=== PATIENT | female | born 1950 | race Caucasian/White ===

== ENCOUNTER 2017-01-04 16:08 | Inpatient (IN) ==
[2017-01-04] MEDS ORDERED: SODIUM CHLORIDE 0.9% 500 ML IV STA (16:43)
[2017-01-04] MEDS ORDERED: ONDANSETRON 4 MG/2 ML VIAL IV STA (16:43)
[2017-01-04 17:08] LABS: Basophils % 0.1 % (0.0-0.8); Eosinophils % 0.1 % (0.00-10.9); Hematocrit 46.2 VOL% (35.7-47.0); Hemoglobin 15.5 GM/DL (12.0-16.0); Immature Granulocytes % 0.3 %; Immature Granulocytes Absolute 0.05 #; Mean Corpuscular HGB Conc 33.5 GM/DL (32-36); Mean Corpuscular Hemoglobin 31 PG (27-34); Mean Corpuscular Volume 91.3 FL (87-102); Mean Platelet Volume 10.9 FL (9.6-12.0); Monocytes # 1.3 10*3/uL (0.11-0.8); Monocytes % 9.4 % (1.7-12.7); Neutrophils # 10.9 10*3/uL (1.4-7.4); Neutrophils % 76.1 % (38.7-73.9); Platelet Count 285 T/CUMM (130-400); Red Blood Count 5.06 MC/CUMM (3.8-5.5); White Blood Count 14.3 T/CUMM (4-12)
--- NOTE | 2017-01-04 17:11 | XRay Report ---
Portable chest Date: 01/04/2017 Clinical history: Generalized abdominal pain Comparison: 06/03/2012 Technique: Portable AP sitting chest Findings: The heart is normal in size. The lungs are clear with unremarkable mediastinum. Degenerative changes are noted. Impression: No acute cardiopulmonary pathology identified. PROCEDURE INTERPRETED AT [facility] DEPARTMENT OF RADIOLOGY Final Report Signed by: Dr. Laila Meyers
[2017-01-04] MEDS ORDERED: ONDANSETRON 4 MG/2 ML VIAL ONE (17:16)
[2017-01-04 17:21] LABS: Albumin 4.6 G/DL (3.4-5.0); Bilirubin,Total 1.9 MG/DL (0.2-1.0); Calcium 9.9 MG/DL (8.5-10.1); Osmolality,Calculated 274.1 MOS/KG (273-304); Potassium 3.7 MMOL/L (3.5-5.1); Total Protein 8.7 G/DL (6.4-8.3)
--- NOTE | 2017-01-04 17:21 | CT Report ---
CT abdomen pelvis wo con Indication: Abdominal and pelvic pain. CT ABDOMEN AND PELVIS WITHOUT CONTRAST DLP: 215 mGy*cm. One or more of the following dose reduction techniques was used: Automated exposure control, adjustment of the mA and/or kV according the patient size, or use of iterative reconstruction techniques. Comparison: 06/05/2011. Technique: Axial noncontrast CT images of the abdomen and pelvis were obtained. Abdomen: Normal heart size. Bibasilar scarring or atelectasis. Unenhanced liver, spleen, pancreas, adrenal glands and right kidney appear unremarkable. Single nonobstructing 4 mm left kidney stone is present. Gallbladder is absent. Stool and gas is present throughout colon. Small bowel dilatation is present with multiple air-fluid levels. This begins at the duodenum and involves most of the jejunum. There is a gradual transition in the right pelvis not thought to represent a actual mechanical obstruction. Pelvis: Appendix not identified. No right lower quadrant inflammation. Urinary bladder is contracted. Uterus is absent. Rectosigmoid colon is unremarkable except for some scattered diverticula. No free fluid, free air or lymphadenopathy. No mesenteric inflammation. No destructive bone lesions. Impression: 1. Gas-filled dilatation of small bowel with some scattered air-fluid levels noted. All of the findings support early small bowel obstruction, with a transition in the right pelvis, no cause for obstruction is seen. Additionally, stool and gas is present in the colon. 2. Nonobstructing left kidney stone. 3. Status post cholecystectomy and hysterectomy. Appendix not identified but no right lower quadrant inflammation. PROCEDURE INTERPRETED AT [facility] DEPARTMENT OF RADIOLOGY Final Report Signed by: Leonardo Mcmanus M.D.
[2017-01-04] MEDS ORDERED: ACETAMINOPHEN 325 MG TABLET PO PRN (17:29)
[2017-01-04] MEDS ORDERED: ONDANSETRON 4 MG/2 ML VIAL IV PRN (17:29)
--- NOTE | 2017-01-04 17:37 | Emergency Department Note ---
Beatrice Trent Brittany, am scribing for, and in the presence of, Travon Man MD 16:44. Donovan Trent Phillip K, MD, personally performed the services described in this documentation, ascribed by Caridad Barron in my presence, and it is both accurate and complete 737 . Arrival - Arrival Chief Complaint: Abdominal / Flank Pain Stated Complaint: Small bowel obstuction ED Nursing Triage Note: Pt c/o abd pain, weakness, nausea, and vomiting since . Pt sent from clinic for ?SBO. Mode of Arrival: Ambulatory Limitations: No Limitations Source: Patient - History of Present Illness HPI Narrative: THis is a 66 y/o white female,who presents to the ED for further evaluation of a SBO. She states states for the past 2 days she has had abdominal pain and nausea. She states she had a normal BM yesterday. She denies a fever or diarrhea. She states she has been vomiting. She states movements make the pain worse. Pt has no other complaints/painin the ED at this time. Pt has a PMHx of HTN and GERD. Pt has had a hysterectomy, appendectomy, and cholecystectomy. Pt denies a family medical Hx. Pt denies a social Hx. Consistency: constant Severity: moderate Allergies/Adverse Reactions: Allergies Allergy/AdvReac Type Severity Reaction Status Date / Time acetaminophen [From [place]] AdvReac Nausea Verified 01/04/17 16:17 hydrocodone [From [place]] AdvReac Nausea Verified 01/04/17 16:17 Home Medications: Home Medications Medication Instructions Recorded Confirmed Type Losartan [Cozaar] 50 mg PO QAM 01/04/17 01/04/17 History Omeprazole Magnesium [Prilosec Otc] 20 mg PO DAILY PRN 01/04/17 01/04/17 History Review of System - Review of System 12 point system: reviewed and no additional remarkable complaints except as stated - Review of System Constitutional: Absent: fever Gastrointestinal: Present: abdominal pain, nausea, vomiting. Absent: diarrhea Medical,Surgical,& Family Hx - Medical History Cardio: History of: [place] Gastrointestinal: History of: GERD - Surgical History Abdominal Surgeries: Surgical HX of: Appendectomy, Cholecystectomy Reproductive Surgeries: Surgical HX of;: Hysterectomy - Social History Smoking Status: Never smoker Exam Vital Signs: Vital Signs Temperature 97.6 F 01/04/17 16:37 Pulse Rate 86 01/04/17 17:35 Respiratory Rate 16 01/04/17 17:35 Blood Pressure 125/50 01/04/17 17:35 O2 Sat by Pulse Oximetry 100 01/04/17 17:35 - General General appearance: alert, in no apparent distress - Head Head exam: Present: atraumatic, normocephalic, normal inspection - Eye Eye exam: Present: normal appearance, PERRL, EOMI. Absent: nystagmus, miosis, mydriasis - ENT ENT exam: Present: normal exam, normal oropharynx, mucous membranes moist, TM's normal bilaterally, normal external ear exam - Neck Neck exam: Present: normal inspection, full ROM, trachea midline. Absent: tenderness, meningismus, lymphadenopathy, thyromegaly - Chest Chest inspection: Present: normal inspection, symmetric chest wall rise. Absent : tenderness, rash, abscess - Respiratory Respiratory exam: Present: normal lung sounds bilaterally. Absent: rales, respiratory distress, rhonchi, stridor, wheezes - Cardiovascular Cardiovascular exam: Present: regular rate, normal rhythm, normal heart sounds. Absent: murmur, rubs, gallop, clicks, JVD - Abdominal Exam Abdominal exam: Present: soft, tenderness (Tenderness to the lower quadrants bilaterally, worse in the left lower quadrant), hyperactive bowel sounds. Absent: distention, guarding, rebound, rigidity - Rectal Exam Rectal exam: Present: deferred - Extremities Exam Extremities exam: Present: normal inspection, full ROM, normal capillary refill. Absent: tenderness, pedal edema, joint swelling, calf tenderness - Back Exam Back exam: Present: normal inspection, full ROM. Absent: tenderness, muscle spasm, rashes - Neurological Exam Neurological exam: Present: alert, oriented X3, CN II-XII intact. Absent: motor sensory deficit - Psychiatric Psychiatric exam: Present: normal affect, normal mood. Absent: depressed, agitated, anxious, flat affect, manic - Skin Skin exam: Present: warm, dry, intact, normal color. Absent: rash, cyanosis, diaphoresis, erythema, pallor, mottled Course Course Narrative: Patient discussed with Dr. Livingston Results - Labs CBC & BMP: 01/04/17 17:05 01/04/17 17:05 Lab Results: I have reviewed the patients labs (Urinalysis is pending) - Diagnostic Findings Procedure: Chest x-ray: report reviewed by me (Nothing acute. ), CT Abdomen and Pelvis: report reviewed by me (Gas-filled dilation of small bowel with some scattered air-fluid levels noted. All of the findingssupport early small bowel obstruction, with a transition in the right right pelvis, no cause for obstruction is seen. Additionally, stool and gas is present in paul colon. 2. Non obstructing left kideny stone. 3. Status post cholecystectomy and hysterectomy. Appendix not identified but no right lower quadrant inflammation. ) Disposition Clinical Impression: Early small bowel obstruction Case discussed with: patient, patient's family Disposition: Still a Patient Condition: Guarded Additional Instructions: Admit to Dr. Livingston
[2017-01-04 17:40] LABS: Apearance,Urine Slightly Hazy (Clear); Bacteria,Urine Occasional /HPF (Few); Bilirubin,Urine Negative (Negative); Blood, Urine Small mg/dL (Negative); Glucose,Urine (UA) Negative (Negative); Hyaline Casts,Urine 40 /LPF (0-3); Ketones,Urine Negative (Negative); Mucus,Urine Few /LPF (Occasional); Nitrite,Urine Negative (Negative); Protein,Urine 30 MG/DL; RBC,Urine 3 /HPF (0-4); Squamous Epithelial Cell,Urine Occasional /HPF (0-10); Urine Specific Gravity 1.019 (1.001-1.035); Urine Urobilinogen < 2.0 EU/DL (0.2-1.0); WBC,Urine 14 /HPF (0-6)
[2017-01-04 17:41] LABS: Urine Color Yellow (Yellow)
[2017-01-04] MEDS: DEXTROSE 5% NACL 0.45% 1,000 ML IV SCH (18:49)
[2017-01-04] MEDS ORDERED: LACTATED RINGERS 1,000 ML IV ONE (20:08)
--- NOTE | 2017-01-04 20:20 | General Surg History&Physical ---
Assessment and Plan (1) Small bowel obstruction Status: Acute Assessment and plan: This is a mixed picture whether or not she truly has a bowel obstruction. She certainly could have a partial obstruction and early complete obstruction which actually feels better after being admitted and wants to try to eat something and drink something now. She is still slightly tympanic swab like to go slow with her diet will give her some sips of clears and ice chips tonight. She is also asking for something to help her sleep we will give her a small dose of Benadryl tonight as well IV. I have ordered a small bowel series with Gastrografin tomorrow for both diagnostic and therapeutic effects. We will continue her on bowel rest of than sips of clears treat her nausea tonight and also she will be resuscitated with IV fluids and her labs will be repeated tomorrow. She will get an additional bolus of LR right now and hopefully her kidney function will recover back to normal. We will also repeat her bilirubin again tomorrow. In addition, looks like she might have urinary tract infections will follow-up her final cultures and go ahead and cover her with some antibiotics for now given her elevated white blood cell count. Current Visit: Yes History of Present Illness Chief complaint: Nausea and vomiting with abdominal pain History of present illness: Ms. Hurt is a 66 year old female with a past surgical history of hysterectomy, appendectomy, and cholecystectomy who presents to the hospital with nausea and vomiting since Sunday as well as lower quadrant abdominal pain. She denies any abdominal bloating and she has been having regular bowel movements and passing gas which she actually did today as well. She was evaluated in the ER after her primary physician ordered an x-ray and found of small bowel obstruction pattern. Abdominal CT scan shows several areas of intermittent dilation and decompression in the small bowel and there is stool and air in the ascending and transverse colon but not so much in the distal colon and rectum. She did come in with some low blood pressure and renal insufficiency as well as elevated bilirubin. She was given a 500 cc bolus of saline in the ER and admitted to the floor. She was not nauseated in the ER so no NG tube was placed. She had some Zofran in the ER and actually feels much better now and is no longer nauseated. She actually feels thirsty and wants to drink something. Home Medications Medication Instructions Recorded Confirmed Type Losartan [Cozaar] 50 mg PO QAM 06/22/17 06/22/17 History Omeprazole Magnesium [Prilosec Otc] 20 mg PO DAILY PRN 01/04/17 01/04/17 History Allergies Allergy/AdvReac Type Severity Reaction Status Date / Time hydrocodone [From [place]] AdvReac Nausea Verified 01/04/17 16:17 Medical,Surgical,& Family Hx - Medical History Cardio: History of: Hypertension, [place] Genitourinary: History of: Kidney Stones Gastrointestinal: History of: GERD - Surgical History Abdominal Surgeries: Surgical HX of: Appendectomy, Cholecystectomy Reproductive Surgeries: Surgical HX of;: Hysterectomy - Social History Smoking Status: Never smoker Exam - Constitutional Vitals: Period Temp Pulse Resp BP Sys/Felder Pulse Ox Last 24 Hr 97.6 F-99.1 F 60-86 16-20 83-125/50-87 95-100 General appearance: normal weight, no acute distress - Head Head exam: Present: normal inspection, normocephalic - Eye Eye exam: Present: EOMI. Absent: conjunctival injection, scleral icterus Pupils: Present: RISHI - ENT ENT exam: Present: normal exam Mouth exam: Present: normal external inspection, normal voice - Neck Neck exam: Present: normal inspection, trachea midline - Respiratory Respiratory exam: Present: clear to auscultation bilaterally. Absent: accessory muscle use, chest wall tenderness - Cardiovascular Cardiovascular exam: Present: RRR. Absent: systolic murmur, tachycardia - GI/Abdominal GI/Abdominal exam: Present: distended, hypoactive bowel sounds, tenderness ( Minimal suprapubic tenderness lower quadrants bilaterally), soft, other (The abdomen is slightly tympanic). Absent: rebound - Extremities Exam Extremities exam: Present: normal inspection, normal capillary refill - Back Exam Back exam: Present: normal inspection - Neurological Exam Neurological exam: Present: alert, oriented X3 Speech: Present: normal - Skin Skin exam: Present: normal color, warm - Constitutional Constitutional: Present: as per HPI - EENT Nose, mouth and throat: Present: as per HPI - Cardiovascular Cardiovascular: Present: as per HPI - Respiratory Respiratory: Present: as per HPI - Gastrointestinal Gastrointestinal: Present: as per HPI - Genitourinary Genitourinary: Present: as per HPI - Musculoskeletal Musculoskeletal: Present: as per HPI - Neurological Neurological: Present: as per HPI - Endocrine Endocrine: Present: as per HPI Hematologic/Lymphatic: Present: as per HPI Results - Labs CBC & BMP: 01/04/17 17:05 01/04/17 17:05 - Diagnostic Findings Procedure: CT Abdomen and Pelvis: image reviewed by me, report reviewed by me, pending (Multiple areas of intermittent dilation and decompression of the small bowel. Possible partial small bowel obstruction or early complete obstruction in the right lower quadrant.)
[2017-01-04] MEDS ORDERED: diphenhydrAMINE 50 MG/1 ML VIAL IV PRN (20:22)
[2017-01-04] MEDS ORDERED: CIPROFLOXACIN INJ 400 MG in PREMIX 1 EACH IV SCH (20:30)
[2017-01-04] MEDS: metroNIDAZOLE INJ 500 MG in PREMIX 1 EACH IV SCH (21:25)
[2017-01-05] MEDS: DEXTROSE 5% NACL 0.45% 1,000 ML IV SCH ×4 (03:07→17:07)
[2017-01-05] MEDS: metroNIDAZOLE INJ 500 MG in PREMIX 1 EACH IV SCH ×3 (04:51→20:25)
[2017-01-05 07:06] LABS: Basophils % 0.3 % (0.0-0.8); Eosinophils # 0.2 10*3/uL (0.0-0.87); Eosinophils % 2.1 % (0.00-10.9); Hematocrit 33.9 VOL% (35.7-47.0); Immature Granulocytes % 0.4 %; Immature Granulocytes Absolute 0.04 #; Lymphocytes # 2.5 10*3/uL (1.4-4.0); Lymphocytes % 24.7 % (21.3-54.2); Mean Corpuscular HGB Conc 32.7 GM/DL (32-36); Mean Corpuscular Hemoglobin 30 PG (27-34); Mean Corpuscular Volume 92.9 FL (87-102); Mean Platelet Volume 10.9 FL (9.6-12.0); Monocytes # 1.1 10*3/uL (0.11-0.8); Monocytes % 10.8 % (1.7-12.7); Neutrophils # 6.2 10*3/uL (1.4-7.4); Neutrophils % 61.7 % (38.7-73.9); White Blood Count 10.1 T/CUMM (4-12)
[2017-01-05 07:08] LABS: Hemoglobin 11.1 GM/DL (12.0-16.0); Platelet Count 206 T/CUMM (130-400); Red Blood Count 3.65 MC/CUMM (3.8-5.5)
--- NOTE | 2017-01-05 07:21 | General Surgery Progress Note ---
Assessment and Plan (1) Small bowel obstruction Status: Acute Assessment and plan: The patient has improved symptoms. Her white blood cell count is normal. Her hemoglobin drifted down some but likely delusional. I do not think she is bleeding. Chemistry is pending. We will go ahead and get a small bowel series today and based on next step in management on this. Current Visit: Yes Subjective Patient reports: Present: no new complaints, feels better, still having pain, pain is less, tolerating liquids well, no flatus, no bowel movement, afebrile Exam - Constitutional Vitals: Period Temp Pulse Resp BP Sys/Felder Pulse Ox Last 24 Hr 97.6 F-99.7 F 55-86 16-20 80-125/49-87 93-100 General appearance: normal weight, no acute distress - Head Head exam: Present: normal inspection, normocephalic - Eye Eye exam: Present: EOMI Pupils: Present: RISHI - ENT ENT exam: Present: normal exam Mouth exam: Present: normal external inspection, normal voice - Neck Neck exam: Present: normal inspection, trachea midline - Respiratory Respiratory exam: Present: clear to auscultation bilaterally. Absent: accessory muscle use, chest wall tenderness - Cardiovascular Cardiovascular exam: Present: RRR. Absent: systolic murmur, tachycardia - GI/Abdominal GI/Abdominal exam: Present: hypoactive bowel sounds, soft. Absent: Cadena's sign, tenderness, rebound - Extremities Exam Extremities exam: Present: normal inspection, normal capillary refill - Back Exam Back exam: Present: normal inspection - Neurological Exam Neurological exam: Present: alert, oriented X3 Speech: Present: normal - Skin Skin exam: Present: normal color, warm Results - Labs CBC & BMP: 01/05/17 06:15 01/04/17 17:05
[2017-01-05 07:27] LABS: Bilirubin,Total 1.6 MG/DL (0.2-1.0); Calcium 7.9 MG/DL (8.5-10.1); Osmolality,Calculated 284.1 MOS/KG (273-304); Potassium 3.8 MMOL/L (3.5-5.1); Total Protein 5.6 G/DL (6.4-8.3)
[2017-01-05] MEDS: PANTOPRAZOLE 40 MG VIAL IV SCH (09:40)
[2017-01-05] MEDS: CIPROFLOXACIN INJ 400 MG in PREMIX 1 EACH IV SCH ×2 (09:40→21:45)
--- NOTE | 2017-01-05 09:54 | Fluoroscopy Report ---
Small bowel series Indication: Bowel obstruction Findings: Small bowel series was performed with Gastrografin. There are distended proximal small bowel loops and contrast becomes somewhat deluded distally. There is normal-appearing distal small bowel. No distinct point of transition is identified. Impression: Distended proximal small bowel loops, could indicate partial obstruction. No distinct transition point identified. PROCEDURE INTERPRETED AT [facility] DEPARTMENT OF RADIOLOGY Final Report Signed by: Dr. Derek Adan
[2017-01-05] MEDS ORDERED: MORPHINE 2 MG/1 ML SYRINGE IV ONE (12:54)
[2017-01-06] MEDS: DEXTROSE 5% NACL 0.45% 1,000 ML IV SCH (02:36)
[2017-01-06 04:14] LABS: Calcium 8.3 MG/DL (8.5-10.1); Magnesium 1.9 MG/DL (1.8-2.4); Potassium 3.4 MMOL/L (3.5-5.1)
[2017-01-06] MEDS: metroNIDAZOLE INJ 500 MG in PREMIX 1 EACH IV SCH (05:00)
[2017-01-06] MEDS ORDERED: POTASSIUM CHLORIDE 20 MEQ TABLET PO ONE (06:57)
--- NOTE | 2017-01-06 07:00 | Discharge Summary ---
Hospital Course - Hospital Course Hospital Course: This patient was admitted with partial small bowel obstruction that was further studied and treated with Gastrografin small bowel series after a noncontrast CT scan raise the suspicion of this diagnosis. A Gastrografin small bowel series showed delayed transit through the small bowel evidence of partial small bowel obstruction but immediately after the procedure she began have quite a bit of diarrhea and had several bowel movements that same day. Her abdomen became benign and normal again and she felt hungry so we fed her a low fiber diet which she tolerated well. Her renal function completely recovered. Her potassium did drop some the morning of discharge she was given some supplemental potassium that day and encouraged to eat some foods that were rich in potassium all she was getting over her diarrhea. She does have a recent colonoscopy and her next one is due next year so I think we can discontinue with the current plan is for us for colonoscopy screening and she will not require any further follow-up with me unless her symptoms recur again. Diagnosis - Discharge Diagnosis (1) Small bowel obstruction Status: Acute Discharge Plan - Discharge Data Disposition: Disch To Home/Self Care Condition at Discharge: Stable Discharge Diet: other (low residue/low fiber diet) Activity: resume usual activities as tolerated Hygiene: no restrictions, may shower Weight Bearing at Discharge: weight bear as tolerated Driving: no restrictions Contact your physician if you experience:: fever over 101, Difficulty voiding, Redness or swelling, Nausea/Vomiting, Shortness of breath, Bleeding, pain uncontrolled by pain medications - Discharge Medications Continue Losartan [Cozaar] 50 mg PO QAM Omeprazole Magnesium [Prilosec Otc] 20 mg PO DAILY PRN PRN Reason: STOMACH ACID - Follow Up or Referral - Forms/Instructions Exam - Constitutional Vitals: Period Temp Pulse Resp BP Sys/Felder Pulse Ox Last 24 Hr 97.7 F-99.7 F 54-67 16-20 82-133/52-68 96-100 General appearance: normal weight, no acute distress - Head Head exam: Present: normal inspection, normocephalic - Eye Eye exam: Present: EOMI Pupils: Present: RISHI - ENT ENT exam: Present: normal exam - Neck Neck exam: Present: normal inspection - Respiratory Respiratory exam: Present: clear to auscultation bilaterally. Absent: accessory muscle use, chest wall tenderness - Cardiovascular Cardiovascular exam: Present: regular rate and rhythm. Absent: systolic murmur , tachycardia - GI/Abdominal GI/Abdominal exam: Present: normal bowel sounds, soft. Absent: tenderness, rebound - Extremities Exam Extremities exam: Present: normal inspection, normal capillary refill - Back Exam Back exam: Present: normal inspection - Neurological Exam Neurological exam: Present: alert, oriented X3 - Psychiatric Psychiatric exam: Present: normal affect, normal mood - Skin Skin exam: Present: normal color, warm Discharge Results Procedures and tests throughout hospitalization: Pending Orders 01/04/17 Urine Culture Routine 01/06/17 04:00 XR abdomen 2V IN AM Labs on day of discharge: Labs from last 24 hours 01/06/17 01/05/17 01/05/17 02:45 06:15 06:15 WBC 10.1 RBC 3.65 L D Hgb 11.1 L D Hct 33.9 L MCV 92.9 MCH 30 MCHC 32.7 RDW 13.0 Plt Count 206 D MPV 10.9 Neut % (Auto) 61.7 Lymph % (Auto) 24.7 [place] % (Auto) 10.8 Eos % (Auto) 2.1 Baso % (Auto) 0.3 Neut # (Auto) 6.2 Lymph # (Auto) 2.5 [place] # (Auto) 1.1 H Eos # (Auto) 0.2 Baso # (Auto) 0.0 Immature Gran % 0.4 Nucleated RBC % 0.0 Immature Gran # 0.04 Nucleated RBCs # 0.00 Sodium 143 142 Potassium 3.4 L 3.8 Chloride 110 H 109 H Carbon Dioxide 25 27 Anion Gap 11.4 9.8 BUN 9 18 Creatinine 1.00 1.20 H GFR Calculation 54 43 BUN/Creatinine Ratio 9.00 15.00 Glucose 105 99 Calculated Osmolality 283.0 284.1 Calcium 8.3 L 7.9 L D Magnesium 1.9 Total Bilirubin 1.60 H AST 15 ALT 15 Alkaline Phosphatase 41 L Total Protein 5.6 L Albumin 3.0 L Globulin 2.6 Albumin/Globulin Ratio 1.1 Lipase 112.0 D Preliminary micro results at discharge 01/04/17 Unknown Urine Culture - Preliminary Urine,Catheterized No Growth at 12 hours. DS: Provider Date of admission: 01/05/17 15:08 Primary care physician: . No PCP Attending physician on admission: Sigifredo Livingston MD Discharging clinician: Sigifredo Livingston MD Expected date of discharge: 01/06/17
[2017-01-06 07:31] VITALS: BP 119/70
[2017-01-06] MEDS: PANTOPRAZOLE 40 MG VIAL IV SCH (09:19)
--- NOTE | 2017-01-06 10:36 | XRay Report ---
Exam: XR abdomen 2V Date: 01/06/2017 4:00 AM Comparison: Small bowel series 01/05/2017 Indication: SBO Technique:[Supine and erect abdomen] Findings: Reduced gaseous distention of the small bowel with the oral contrast progressing into the colon. Diverticulosis of the colon. No free air. Prior cholecystectomy. Impression: Improved partial SBO with the oral contrast reaching the colon. Diverticulosis of the colon. Prior cholecystectomy. PROCEDURE INTERPRETED AT [facility] DEPARTMENT OF RADIOLOGY Final Report Signed by: Dr. Laila Meyers
--- NOTE | 2017-01-08 13:48 | Physician Query Form ---
CLICK EDIT DOCUMENT TO SELECT QUERY ANSWER --> OK --> SIGN Cathleen Mora RN, CCDS Certified Clinical [employer] Supervisor W) [phone] (f) [phone] [email or web address] PROVIDERS: Make your selection(s) from the choices in EACH section by typing an "x" and enter comments in the comment section. Please use your independent medical judgment in providing your response. This request does not imply that any particular answer is desired or expected. CLINICAL INDICATORS: (Providers should not edit this section) The medical record indicates that the patient was admitted with a SBO, creatinine of 1.80# on the that dropped to 1.20# on the , GFR of 26# on the that has increased to 43# on the , and the patient was Bolused with fluid in the ER. -----("Her renal function completely recovered") Clarify which of the following most accurately represents the patient's renal status: (x) Acute kidney injury (non-traumatic) ( ) Acute renal failure ( ) Acute renal failure with underlying Chronic Kidney Disease (CKD) - please provide stage below ( ) Acute renal failure with pathological renal lesion ( ) Acute renal failure with necrosis ( ) tubular ( ) medullary ( ) cortical ( ) CKD - please provide stage below ( ) End Stage Renal Disease ( ) Acute interstitial nephritis ( ) Hepatorenal syndrome ( ) Other, please specify: ( ) Clinically unable to determine Chronic Kidney Disease Stages Source: National Kidney Disease Foundation ( ) Stage I (eGFR > or = 90) ( ) Stage II (eGFR 60 - 89) ( ) Stage III (eGFR 30 - 59) ( ) Stage IV (eGFR 15 - 29) ( ) Stage V (eGFR < 15 or dialysis) COMMENTS: PLEASE ALSO DOCUMENT RESPONSE IN PROGRESS NOTES AND/OR DISCHARGE SUMMARY Use of terms such as suspected, likely, or probable (associated with a specific diagnosis that is being evaluated, monitored, or treated as if it exists) are acceptable and can be restated in the discharge summary if not ruled out. MTDD
== END 2017-01-06 10:55 | disposition home or self-care (01) | DRG 389 ==
LOC: N.EDINP 16:08 → N.ED 16:08 → N.3E 18:04
PROVIDERS: ADMIT Surgery; ATTEND Surgery